=== PATIENT | female | born 1985 | race Two or more races ===

== ENCOUNTER 2016-02-20 18:54 | Emergency (ER) | payer OTHER ==
[2016-02-20] MEDS ORDERED: ASPIRIN 81 MG TABLET, CHEWABLE PO ONE (20:56)
--- NOTE | 2016-02-20 21:41 | ER Document Report ---
ED Medical Screen (RME) - General Chief Complaint: Chest Pain > 30 Stated Complaint: CHEST PAIN Time seen by provider: 21:38 Mode of Arrival: Ambulatory Information source: Patient TRAVEL OUTSIDE OF THE [place] IN LAST 30 DAYS: No - HPI Patient complains to provider of: CHEST PAIN Onset: This afternoon Onset/Duration: Sudden Context: PT WAS RUNNING TODAY AND EXPERIENCED SUDDEN ONSET MID STERNAL CHEST PAIN. STILL EXPERIENCING CHEST PAIN WITH DEEP BREATHING AND BENDING FORWARD. PAIN IS NOT REPRODUCIBLE. NO PREVIOUS EPISODES OF THIS TYPE OF PAIN, NO FAMILY HX SUDDEN CARDIAC . Quality of pain: Sharp Severity: Moderate Pain Level: 3 Associated Symptoms: Chest pain, Hurts to breath, Shortness of breath Exacerbated by: Movement, Deep breathing Relieved by: Remaining still Similar symptoms previously: No Recently seen / treated by doctor: No - Related Data Smoking: Non-smoker Frequency of alcohol use: None Drug Abuse: None Allergies/Adverse Reactions: No Known Allergies Allergy (Verified 02/20/16 19:10)
[2016-02-20 22:00] LABS: ABSOLUTE BASOPHILS # (AUTO) 0.1 10^3/uL (0.0-0.2); ABSOLUTE EOSINOPHILS # (AUTO) 0.1 10^3/uL (0.0-0.6); ABSOLUTE LYMPHOCYTES (AUTO) 2.4 10^3/uL (0.5-4.7); ABSOLUTE MONOCYTES (AUTO) 0.7 10^3/uL (0.1-1.4); ABSOLUTE NEUT (AUTO) 4.8 10^3/uL (1.7-8.2); BASOPHILS % (AUTO) 0.9 % (0-2); EOSINOPHILS % (AUTO) 1.4 % (0-6); HEMATOCRIT 38.5 % (36.0-47.0); HEMOGLOBIN 12.8 g/dL (12.0-15.5); HGB HCT DIFFERENCE -0.1; LYMPHOCYTES % (AUTO) 30.2 % (13-45); MEAN CORPUSCULAR HEMOGLOBIN 28.3 pg (27.0-33.4); MEAN CORPUSCULAR HGB CONC 33.2 g/dL (32.0-36.0); MEAN CORPUSCULAR VOLUME 85 fl (80-97); MONOCYTES % (AUTO) 8.7 % (3-13); RED BLOOD COUNT 4.51 10^6/uL (3.72-5.28); RED CELL DISTRIBUTION WIDTH 14.2 % (11.5-14.0); SEGMENTED NEUTROPHILS % (AUTO) 58.8 % (42-78); WHITE BLOOD COUNT 8.1 10^3/uL (4.0-10.5)
[2016-02-20 22:18] LABS: ALANINE AMINOTRANSFERASE 42 U/L (9-52); ALBUMIN 4.3 g/dL (3.5-5.0); ALKALINE PHOSPHATASE 68 U/L (38-126); ANION GAP 11 (5-19); ASPARTATE AMINO TRANSFERASE 35 U/L (14-36); BILIRUBIN,TOTAL 0.4 mg/dL (0.2-1.3); BLOOD UREA NITROGEN 24 mg/dL (7-20); CALCIUM 9.7 mg/dL (8.4-10.2); CARBON DIOXIDE 27 mmol/L (22-30); CHLORIDE 105 mmol/L (98-107); CREATINE KINASE 90 U/L (30-135); CREATININE RESULT 0.76 mg/dL (0.52-1.25); GLUCOSE 86 mg/dL (75-110); SODIUM 142.5 mmol/L (137-145); TOTAL PROTEIN 7.4 g/dL (6.3-8.2)
[2016-02-20 22:30] LABS: CREATINE KINASE MB 0.55 ng/mL (<4.55)
[2016-02-20 22:34] LABS: TROPONIN I < 0.012 ng/mL
--- NOTE | 2016-02-21 03:32 | ER Document Report ---
ED Cardiac - General Mode of Arrival: Ambulatory Information source: Patient TRAVEL OUTSIDE OF THE [place] IN LAST 30 DAYS: No - HPI Patient complains to provider of: Chest pain Associated symptoms: Other - See above <ERENDIRA FUENTES - Last Filed: 02/21/16 03:36> <BLAIRE MARTÍNEZ - Last Filed: 03/05/16 00:40> - General Chief Complaint: Chest Pain > 30 Stated Complaint: CHEST PAIN Notes: Patient is a 30 year old female who presents to the emergency department complaining of chest pain onset yesterday afternoon. Patient states that she was running on the treadmill, which she does everyday, when she noticed her breathing was different, when she took a big breath she felt a sudden sharp pain in her central chest which has been constant since. Patient reports that the pain has subsided some and does not hurt as much when she breaths in. Patient reports she has not had anything similar occur in the past. (ERENDIRA FUENTES) - Related Data Allergies/Adverse Reactions: No Known Allergies Allergy (Verified 02/20/16 19:10) Past Medical History - General Information source: Patient - Social History Smoking Status: Never Smoker Frequency of alcohol use: None Drug Abuse: None Family History: Reviewed & Not Pertinent Patient has suicidal ideation: No Patient has homicidal ideation: No <ERENDIRA FUENTES - Last Filed: 02/21/16 03:36> Review of Systems - Review of Systems Constitutional: No symptoms reported EENT: No symptoms reported Cardiovascular: See HPI, Chest pain Respiratory: No symptoms reported Gastrointestinal: No symptoms reported Genitourinary: No symptoms reported Female Genitourinary: No symptoms reported Musculoskeletal: No symptoms reported Skin: No symptoms reported Hematologic/Lymphatic: No symptoms reported Neurological/Psychological: No symptoms reported -: Yes All other systems reviewed and negative <ERENDIRA FUENTES - Last Filed: 02/21/16 03:36> Physical Exam - Vital signs Interpretation: Normal - General General appearance: Appears well, Alert - HEENT Head: Normocephalic, Atraumatic - Respiratory Respiratory status: No respiratory distress Chest status: Nontender Breath sounds: Normal Chest palpation: Normal - Cardiovascular Rhythm: Regular Heart sounds: Normal auscultation Murmur: No - Abdominal Inspection: Normal Distension: No distension Bowel sounds: Normal Tenderness: Nontender Organomegaly: No organomegaly - Extremities General upper extremity: Normal inspection General lower extremity: Normal inspection - Neurological Neuro grossly intact: Yes Cognition: Normal Orientation: AAOx4 Kalin Coma Scale Eye Opening: Spontaneous Kalin Coma Scale Verbal: Oriented Dickens Coma Scale Motor: Obeys Commands Kalin Coma Scale Total: 15 Speech: Normal - Psychological Associated symptoms: Normal affect, Normal mood - Skin Skin Temperature: Warm Skin Moisture: Dry Skin Color: Normal <ERENDIRA FUENTES - Last Filed: 02/21/16 03:36> Course - Laboratory Result Diagrams: 02/20/16 21:50 02/20/16 21:50 <ERENDIRA FUENTES - Last Filed: 02/21/16 03:36> - Laboratory Result Diagrams: 02/20/16 21:50 02/20/16 21:50 <BLAIRE MARTÍNEZ - Last Filed: 03/05/16 00:40> - Re-evaluation Re-evalutation: 02/21/16 03:32 I personally performed the services described in the documentation, reviewed and edited the documentation which was dictated to my scribe in my presence, and it accurately records my words and actions. Patient presents emergency Department chief complaint of pleuritic chest pain acute onset while running on the treadmill. She said she normally runs on a regular basis today she was running fell #pain stop doing what she was doing and it persisted with deep breath so she came for evaluation. She had no syncopal event no history of trauma to the chest no recent history of travel surgery mobilization DVT or pulmonary emboli. She has no cardiac risk factors of high blood pressure diabetes hyperlipidemia not a smoker. On physical examination she is well-appearing nontoxic no acute distress not tachycardic tachypneic with 100% O2 sat. Negative acute labs EKG and CT PE study is negative. I'm comfortable letting her go home with pleuritic chest pain for primary care physician in one 2 days term for increasing worsening or new symptoms (BLAIRE MARTÍNEZ) - Vital Signs Vital signs: Temp Pulse Resp BP Pulse Ox 98.1 F 64 14 113/58 L 99 02/21/16 03:47 02/21/16 03:47 02/21/16 03:47 02/21/16 03:47 02/21/16 03:47 (ERENDIRA FUENTES) (BLAIRE MARTÍNEZ) - Laboratory Laboratory results interpreted by me: 02/20/16 02/20/16 21:50 21:50 RDW 14.2 H BUN 24 H (ERENDIRA FUENTES) (BLAIRE MARTÍNEZ) - EKG Interpretation by Me Additional EKG results interpreted by me: 02/21/16 03:33 EKG shows normal sinus rhythm at [address] segment elevation or depression (BLAIRE MARTÍNEZ) Critical Care Note - Critical Care Note Total time excluding time spent on procedures (mins): 45 <BLAIRE MARTÍNEZ - Last Filed: 03/05/16 00:40> Discharge <ERENDIRA FUENTES - Last Filed: 02/21/16 03:36> <BLAIRE MARTÍNEZ - Last Filed: 03/05/16 00:40> - Discharge Clinical Impression: Pleurodynia Condition: Stable Disposition: HOME, SELF-CARE Additional Instructions: Pleurisy Your chest pain has been diagnosed as pleuritis (pleurisy). This is an inflammation of the surface of the lung tissue. It can be caused by a virus or , occasionally, old scar tissue. It is painful but, for the most part, not a serious problem. This pain is usually made worse by deep breathing, coughing, or sudden movements of the upper body or arms. The treatment is relief of symptoms. It includes rest, antiinflammatory medication, and pain medicine. Resolution of the pain is usually rapid once antiinflammatory medication is started. Warning signs of a more serious problem include: a fever, shortness of breath, pain that radiates to your jaw, shoulders or arms, or coughing up bloody sputum. If any of these symptoms occur, call the physician at once. Scribe Documentation - Catrachito acting as scribe for :: Jimbo Written by Catrachito:: catrachito Smith, 02/21/16, [id number] <ERENDIRA FUENTES - Last Filed: 02/21/16 03:36>
[2016-02-21 04:09] VITALS: BP 113/58
--- NOTE | 2016-02-21 16:00 | EKG REPORT ---
SEVERITY:- NORMAL ECG - SINUS RHYTHM : Confirmed by: Paramjit Richardson 21-Feb-2016 15:59:54
== END 2016-02-21 03:45 | disposition home or self-care (01) ==
LOC: ER 18:54
DX: R07.81 Pleurodynia (principal)
CPT/HCPCS: 36415; 71010; 71275; 80053; 82550; 82553; 84484; 84703; 85025; 93005; 93010; 99291